=== PATIENT | female | born 1965 | race Caucasian/White ===

== ENCOUNTER 2019-09-12 19:41 | Emergency (ER) | payer MEDICARE ==
--- NOTE | 2019-09-12 20:33 | EDM.PDOC ---
ED HPI GENERAL MEDICAL PROBLEM - General Chief Complaint: Bite:Animal, Insect Stated Complaint: TICK BITE Time Seen by Provider: 09/12/19 20:35 Source of Information: Reports: Patient History Limitations: Reports: No Limitations - History of Present Illness INITIAL COMMENTS - FREE TEXT/NARRATIVE: pt has a female deer tick stuck at the base of the left side of her neck. She states it has been there since monday. She does not feel ill and does not have a fever. Onset: Gradual Location: Reports: Neck Associated Symptoms: Reports: No Other Symptoms denies pain Pain Score (Numeric/FACES): 0 - Related Data Allergies Allergy/AdvReac Type Severity Reaction Status Date / Time cefuroxime [From Ceftin] Allergy Rash Verified 09/12/19 20:20 tizanidine Allergy Tachycardia Verified 09/12/19 20:20 Home Meds: Home Meds Albuterol Sulfate [Albuterol Sulfate Hfa] 8.5 gm IH ASDIRECTED 09/12/19 [History ] Fluticasone/Vilanterol [Breo Ellipta 100-25 MCG Inhalation Kit] 1 puff IN ASDIRECTED 09/12/19 [History] Gabapentin [Neurontin] 800 mg PO DAILY 09/12/19 [History] Metoprolol Succinate [Toprol Xl] 25 mg PO DAILY 09/12/19 [History] atorvaSTATin [Lipitor] 20 mg PO DAILY 09/12/19 [History] Past Medical History Cardiovascular History: Reports: Arrhythmia, High Cholesterol Respiratory History: Reports: COPD 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: Musculoskeletal History: Reports: Fracture Other Musculoskeletal History: neck fx Psychiatric History: Reports: Anxiety - Infectious Disease History Infectious Disease History: Reports: Chicken Pox - Past Surgical History GI Surgical History: Reports: Appendectomy, Cholecystectomy Female Surgical History: Reports: Oophorectomy Social & Family History - Tobacco Use Smoking Status *Q: Current Every Day Smoker Years of Tobacco use: 40 Packs/Tins Daily: 1 - Caffeine Use Caffeine Use: Reports: Coffee - Recreational Drug Use Recreational Drug Use: No ED ROS GENERAL - Review of Systems Review Of Systems: See Below Constitutional: Reports: No Symptoms HEENT: Reports: Other ( deer tick stuck on the base of the left side of the neck ) Respiratory: Reports: No Symptoms Cardiovascular: Reports: No Symptoms Endocrine: Reports: No Symptoms GI/Abdominal: Reports: No Symptoms : Reports: No Symptoms Musculoskeletal: Reports: No Symptoms Skin: Reports: Other ( deer tick at the bvase of the neck on the left. ) Neurological: Reports: No Symptoms Psychiatric: Reports: No Symptoms ED EXAM, ANIMAL BITE - Physical Exam Exam: See Below Exam Limited By: No Limitations General Appearance: Alert Ears: Normal TMs Nose: Normal Inspection Throat/Mouth: Normal Inspection Head: Atraumatic Neck: Other (pt has a tick stuck on the left side of the neck. This is a deer tick. ) Respiratory/Chest: No Respiratory Distress Cardiovascular: Regular Rate, Rhythm Course - Vital Signs Last Recorded V/S: Last Vital Signs Temp 36.3 C 09/12/19 20:24 Pulse 99 09/12/19 20:24 Resp 16 09/12/19 20:24 BP 144/81 H 09/12/19 20:24 Pulse Ox 96 09/12/19 20:24 - Re-Assessments/Exams Free Text/Narrative Re-Assessment/Exam: 09/13/19 19:01 tick was removed with a sliver forceps Departure - Departure Time of Disposition: 20:31 Disposition: Home, Self-Care 01 Condition: Fair Clinical Impression: Dermacentor andersoni tick bite - Discharge Information Instructions: Tick Bite Information, Adult, [id number] Referrals: PCP,None [Primary Care Provider] - Forms: ED Department Discharge Care Plan Goals: mOIST WARM PACKS TO THE affected AREA; APPLY BACITRACIN; Take DOXYCYCLINE 100MG Twice a day FOR 5 DAYS. Use sun protection while on this medication. Sepsis Event Note - Evaluation Sepsis Screening Result: No Definite Risk - Focused Exam Date Exam was Performed: 09/13/19 Time Exam was Performed: 18:59
== END 2019-09-12 20:46 | disposition home or self-care (01) ==
LOC: JP.ED 19:41
DX: S10.96XA Insect bite of unspecified part of neck, initial encounter (principal); F17.210 Nicotine dependence, cigarettes, uncomplicated; Z88.1 Allergy status to other antibiotic agents; Z88.8 Allergy status to other drugs, medicaments and biological substances; Z79.899 Other long term (current) drug therapy; W57.XXXA Bitten or stung by nonvenomous insect and other nonvenomous arthropods, initial encounter
CPT/HCPCS: 99282

== ENCOUNTER 2022-03-02 21:30 | Emergency (ER) | payer MEDICARE, MEDICAID ==
[2022-03-02] MEDS: Acetaminophen/HYDROcodone 325-5 MG Tab PO ONE (22:43)
[2022-03-02] MEDS: Ibuprofen 400 MG Tab PO ONE (22:44)
== END 2022-03-02 23:35 | disposition home or self-care (01) ==
LOC: JP.ED 21:30
DX: E79.0 Hyperuricemia without signs of inflammatory arthritis and tophaceous disease (principal); E78.00 Pure hypercholesterolemia, unspecified; J44.9 Chronic obstructive pulmonary disease, unspecified; Z72.0 Tobacco use; Z88.1 Allergy status to other antibiotic agents; Z88.8 Allergy status to other drugs, medicaments and biological substances; Z79.899 Other long term (current) drug therapy
CPT/HCPCS: 36415; 73660-26-T5; 73660-T5; 84550; 85025; 85651; 86140; 99283; A9270-GY

== ENCOUNTER 2022-07-18 12:05 | Emergency (ER) | payer MEDICARE, MEDICAID ==
[2022-07-18] MEDS ORDERED: Ketorolac 30 MG/ML SDV IM ONE (14:32)
[2022-07-18] MEDS ORDERED: Colchicine 0.6 MG Tab PO ONE ×2 (15:20→16:21)
== END 2022-07-18 17:10 | disposition home or self-care (01) ==
LOC: JP.ED 12:05
DX: M10.9 Gout, unspecified (principal); I10 Essential (primary) hypertension; J44.9 Chronic obstructive pulmonary disease, unspecified; E78.00 Pure hypercholesterolemia, unspecified; Z86.16 Personal history of COVID-19; Z88.1 Allergy status to other antibiotic agents; Z72.0 Tobacco use; Z88.5 Allergy status to narcotic agent; Z79.899 Other long term (current) drug therapy
CPT/HCPCS: 73562; 96372; 99283; A9270; J1885; 89060

== ENCOUNTER 2023-08-16 08:19 | Day surgery (SDC) | payer MEDICARE, MEDICAID ==
[~2023-08-16 08:19] MED LIST: Dexamethasone 4 MG/ML SDV ONE; Glycopyrrolate 0.2 MG/ML 5 ML MDV ONE; Neostigmine Methylsulfate 10 MG/10 ML MDV ONE; Ondansetron 4 MG/2 ML SDV ONE; Propofol 200 MG/20 ML SDV ONE; Rocuronium 50 MG/5 ML Vial ONE; Succinylcholine 200 MG/10 ML MDV ONE; fentaNYL 250 MCG/5 ML SDV ONE
[2023-08-16 08:44] LABS: HEMATOCRIT 37.6 % (34.3-46.0); HEMOGLOBIN 13.1 g/dL (11.2-15.5); MEAN CORPUSCULAR HEMOGLOBIN 31.6 pg (31.6-35.5); MEAN CORPUSCULAR HGB CONC 34.8 g/dL (31.6-35.5); MEAN CORPUSCULAR VOLUME 90.6 fL (81.4-99.0); RED BLOOD CELL COUNT 4.15 M/uL (3.77-5.24); WHITE BLOOD CELL COUNT,WBC 5.8 K/uL (3.2-11.0)
[2023-08-16 09:06] LABS: A/G RATIO 0.9 (1.2-2.2); ALANINE AMINOTRANSFERASE,ALT 48 U/L (12-78); ALBUMIN 3.3 g/dL (3.4-5.0); ALKALINE PHOSPHATASE 102 U/L (46-116); ANION GAP 8.1 mmol/L (5.0-14.0); ASPARTATE AMNIOTRANSFERASE,AST 34 U/L (15-37); BILIRUBIN TOTAL 0.6 mg/dL (0.2-1.0); BLOOD UREA NITROGEN,BUN 10 mg/dL (7-18); CALCIUM 9.2 mg/dL (8.5-10.1); CARBON DIOXIDE,CO2 26 mmol/L (21-32); CHLORIDE,CL 106 mmol/L (100-108); CREATININE 0.8 mg/dL (0.6-1.0); EST CRCL DRUG DOSING (CG) 84.63 mL/min; ESTIMATED GFR 85 mL/min (>60); GLUCOSE RANDOM 96 mg/dL (74-106); POTASSIUM,K 3.8 mmol/L (3.6-5.2); PROTEIN TOTAL,TP 7.2 g/dL (6.4-8.2); SODIUM,NA 140 mmol/L (140-148)
[2023-08-16] MEDS: Lactated Ringers 1,000 ML IV SCH (09:24)
[2023-08-16] MEDS: Nozin Nasal Sanitizer NASBOTH ONE (09:27)
[2023-08-16] MEDS ORDERED: ceFAZolin 2 GM in Premix Bag 1 BAG IV ONE (09:30)
[2023-08-16] MEDS: fentaNYL 100 MCG/2 ML SDV IVPUSH ONE (10:09)
[2023-08-16] MEDS: Clindamycin in 0.9 % Sod Chlor 900 MG in Premix Bag 1 BAG IV ONE (10:50)
[2023-08-16] MEDS ORDERED: fentaNYL 250 MCG/5 ML SDV ONE (11:04)
[2023-08-16] MEDS: Bupivacaine 0.5% 30 ML SDV ONE (11:20)
[2023-08-16] MEDS: Acetaminophen/oxyCODONE 325-5 MG Tab PO PRN (13:01)
== END 2023-08-16 13:54 | disposition home or self-care (01) ==
LOC: JP.SDS 08:19
PROVIDERS: ATTEND Specialist
DX: S52.551A Other extraarticular fracture of lower end of right radius, initial encounter for closed fracture (principal); S52.611A Displaced fracture of right ulna styloid process, initial encounter for closed fracture; J44.9 Chronic obstructive pulmonary disease, unspecified; I10 Essential (primary) hypertension; F32.A Depression, unspecified; F17.200 Nicotine dependence, unspecified, uncomplicated; X58.XXXA Exposure to other specified factors, initial encounter
CPT/HCPCS: 01830; 25607; 36415; 76000; 80053; 85027; 93005; 93010; A9270; C1713; J0330; J0665; J0736; J1100; J2405; J2704; J2710; J3010; J3490; J7120

== ENCOUNTER 2023-10-21 21:07 | Emergency (ER) | payer MEDICARE, MEDICAID ==
[2023-10-21] MEDS: Sodium Chloride 0.9% 1,000 ML IV SCH (23:15)
[2023-10-21] MEDS: Pantoprazole 40 MG Vial IVPUSH ONE (23:16)
[2023-10-21 23:27] LABS: ALANINE AMINOTRANSFERASE,ALT 29 U/L (12-78); ALBUMIN 3.5 g/dL (3.4-5.0); ALKALINE PHOSPHATASE 116 U/L (46-116); ASPARTATE AMNIOTRANSFERASE,AST 20 U/L (15-37); BILIRUBIN TOTAL 0.4 mg/dL (0.2-1.0); BLOOD UREA NITROGEN,BUN 15 mg/dL (7-18); CALCIUM 9.1 mg/dL (8.5-10.1); CARBON DIOXIDE,CO2 27 mmol/L (21-32); CHLORIDE,CL 106 mmol/L (100-108); CREATININE 0.9 mg/dL (0.6-1.0); EST CRCL DRUG DOSING (CG) 75.23 mL/min; ESTIMATED GFR 74 mL/min (>60); GLUCOSE RANDOM 94 mg/dL (74-106); POTASSIUM,K 3.4 mmol/L (3.6-5.2); SODIUM,NA 142 mmol/L (140-148)
[2023-10-21 23:28] LABS: ANION GAP 12.4 mmol/L (5.0-14.0)
[2023-10-21 23:37] LABS: BASOPHILS ABSOLUTE AUTO 0.02 K/uL (0.00-0.10); BASOPHILS PERCENT AUTO 0.3 % (0.1-1.3); EOSINOPHILS ABSOLUTE AUTO 0.16 K/uL (0.00-0.40); EOSINOPHILS PERCENT AUTO 2.8 % (0.0-5.4); HEMATOCRIT 36.8 % (34.3-46.0); HEMOGLOBIN 13.1 g/dL (11.2-15.5); IMMATURE GRAN ABSOLUTE AUTO 0.01 K/uL (0.00-0.23); IMMATURE GRAN PERCENT AUTO 0.2 % (0.0-0.7); LYMPHOCYTES ABSOLUTE AUTO 2.14 K/uL (0.8-3.3); MEAN CORPUSCULAR HEMOGLOBIN 31.7 pg (31.6-35.5); MEAN CORPUSCULAR HGB CONC 35.6 g/dL (31.6-35.5); MEAN CORPUSCULAR VOLUME 89.1 fL (81.4-99.0); MONOCYTES PERCENT AUTO 6.9 % (3.3-12.6); NEUTROPHILS ABSOLUTE AUTO 3.06 K/uL (1.0-7.6); NEUTROPHILS PERCENT AUTO 52.8 % (40.0-78.1); PLATELET COUNT,PLT 263 K/uL (130-375); RED BLOOD CELL COUNT 4.13 M/uL (3.77-5.24); WHITE BLOOD CELL COUNT,WBC 5.8 K/uL (3.2-11.0)
== END 2023-10-22 00:47 | disposition home or self-care (01) ==
LOC: JP.ED 21:07
DX: K62.5 Hemorrhage of anus and rectum (principal); I10 Essential (primary) hypertension; J44.9 Chronic obstructive pulmonary disease, unspecified; E78.00 Pure hypercholesterolemia, unspecified; F17.210 Nicotine dependence, cigarettes, uncomplicated; Z88.8 Allergy status to other drugs, medicaments and biological substances; Z88.1 Allergy status to other antibiotic agents; Z79.899 Other long term (current) drug therapy; Z90.49 Acquired absence of other specified parts of digestive tract
CPT/HCPCS: 36415; 80053; 82272; 85025; 96361; 96374; 99283; 99284; J2470; J7030

== ENCOUNTER 2025-01-05 11:09 | Inpatient (IN) | payer MEDICAID, MEDICARE ==
[2025-01-05] MEDS: Ondansetron 4 MG/2 ML SDV IVPUSH ONE (11:53)
[2025-01-05 12:05] LABS: BASOPHILS PERCENT AUTO 0.1 % (0.1-1.3); EOSINOPHILS PERCENT AUTO 0.0 % (0.0-5.4); IMMATURE GRAN ABSOLUTE AUTO 0.03 K/uL (0.00-0.23); IMMATURE GRAN PERCENT AUTO 0.2 % (0.0-0.7); LYMPHOCYTES ABSOLUTE AUTO 0.53 K/uL (0.8-3.3); LYMPHOCYTES PERCENT AUTO 4.3 % (11.4-47.7); MONOCYTES ABSOLUTE AUTO 0.36 K/uL (0.20-0.90); MONOCYTES PERCENT AUTO 2.9 % (3.3-12.6); NEUTROPHILS ABSOLUTE AUTO 11.53 K/uL (1.0-7.6); NEUTROPHILS PERCENT AUTO 92.5 % (40.0-78.1); PLATELET COUNT,PLT 289 K/uL (130-375); RED BLOOD CELL COUNT 4.59 M/uL (3.77-5.24); WHITE BLOOD CELL COUNT,WBC 12.5 K/uL (3.2-11.0)
[2025-01-05 12:06] LABS: BASOPHILS ABSOLUTE AUTO 0.01 K/uL (0.00-0.10); EOSINOPHILS ABSOLUTE AUTO 0.00 K/uL (0.00-0.40)
[2025-01-05 12:14] LABS: A/G RATIO 1.1 (1.2-2.2); ALANINE AMINOTRANSFERASE,ALT 45 U/L (12-78); ASPARTATE AMNIOTRANSFERASE,AST 30 U/L (15-37); BILIRUBIN TOTAL 0.4 mg/dL (0.2-1.0); BLOOD UREA NITROGEN,BUN 11 mg/dL (7-18); CARBON DIOXIDE,CO2 29 mmol/L (21-32); CHLORIDE,CL 104 mmol/L (100-108); CREATININE 0.8 mg/dL (0.6-1.0); ESTIMATED GFR 84 mL/min (>60); GLUCOSE RANDOM 121 mg/dL (74-106); POTASSIUM,K 4.4 mmol/L (3.6-5.2); PROTEIN TOTAL,TP 7.7 g/dL (6.4-8.2); SODIUM,NA 141 mmol/L (140-148)
[2025-01-05] MEDS: diphenhydrAMINE 50 MG/ML SDV IVPUSH ONE (12:30)
[2025-01-05] MEDS: Sodium Chloride 0.9% 10 ML Syringe FLUSH ONE (12:35)
[2025-01-05] MEDS: Iopamidol 612 MG/ML 100 ML Bottle IV ONE (12:35)
[2025-01-05] MEDS ORDERED: Ondansetron 4 MG/2 ML SDV IV PRN (15:52)
[2025-01-06 05:43] LABS: BASOPHILS PERCENT AUTO 0.3 % (0.1-1.3); EOSINOPHILS ABSOLUTE AUTO 0.10 K/uL (0.00-0.40); EOSINOPHILS PERCENT AUTO 1.3 % (0.0-5.4); IMMATURE GRAN PERCENT AUTO 0.1 % (0.0-0.7); LYMPHOCYTES ABSOLUTE AUTO 1.75 K/uL (0.8-3.3); LYMPHOCYTES PERCENT AUTO 22.5 % (11.4-47.7); MONOCYTES ABSOLUTE AUTO 0.60 K/uL (0.20-0.90); MONOCYTES PERCENT AUTO 7.7 % (3.3-12.6); NEUTROPHILS ABSOLUTE AUTO 5.29 K/uL (1.0-7.6); NEUTROPHILS PERCENT AUTO 68.1 % (40.0-78.1); PLATELET COUNT,PLT 244 K/uL (130-375); RED BLOOD CELL COUNT 4.00 M/uL (3.77-5.24); WHITE BLOOD CELL COUNT,WBC 7.8 K/uL (3.2-11.0)
[2025-01-06 05:45] LABS: BASOPHILS ABSOLUTE AUTO 0.02 K/uL (0.00-0.10); IMMATURE GRAN ABSOLUTE AUTO 0.01 K/uL (0.00-0.23)
[2025-01-06 05:58] LABS: A/G RATIO 1.0 (1.2-2.2); ALANINE AMINOTRANSFERASE,ALT 39 U/L (12-78); ASPARTATE AMNIOTRANSFERASE,AST 28 U/L (15-37); BILIRUBIN TOTAL 0.5 mg/dL (0.2-1.0); BLOOD UREA NITROGEN,BUN 7 mg/dL (7-18); CARBON DIOXIDE,CO2 28 mmol/L (21-32); CHLORIDE,CL 109 mmol/L (100-108); CREATININE 0.6 mg/dL (0.6-1.0); EST CRCL DRUG DOSING (CG) 111.44 mL/min; ESTIMATED GFR 103 mL/min (>60); GLUCOSE RANDOM 87 mg/dL (74-106); POTASSIUM,K 3.8 mmol/L (3.6-5.2); PROTEIN TOTAL,TP 5.8 g/dL (6.4-8.2); SODIUM,NA 143 mmol/L (140-148)
[2025-01-07 06:23] LABS: BLOOD UREA NITROGEN,BUN 5.0 mg/dL (7-18); CARBON DIOXIDE,CO2 28.0 mmol/L (21-32); CHLORIDE,CL 107.0 mmol/L (100-108); CREATININE 0.6 mg/dL (0.6-1.0); EST CRCL DRUG DOSING (CG) 111.44 mL/min; ESTIMATED GFR 103.0 mL/min (>60); GLUCOSE RANDOM 76.0 mg/dL (74-106); POTASSIUM,K 3.6 mmol/L (3.6-5.2); SODIUM,NA 140.0 mmol/L (140-148)
== END 2025-01-07 14:19 | disposition home or self-care (01) | DRG 390 ==
LOC: JP.ED 11:09 → JP.MS 14:53
PROVIDERS: ADMIT Student in an Organized Health Care Education/Training Program; ATTEND Internal Medicine
DX: K91.30 Postprocedural intestinal obstruction, unspecified as to partial versus complete (principal); K56.609 Unspecified intestinal obstruction, unspecified as to partial versus complete obstruction; J44.9 Chronic obstructive pulmonary disease, unspecified; G47.30 Sleep apnea, unspecified; I10 Essential (primary) hypertension; G43.909 Migraine, unspecified, not intractable, without status migrainosus; F31.9 Bipolar disorder, unspecified; F41.9 Anxiety disorder, unspecified; E86.0 Dehydration; F20.9 Schizophrenia, unspecified; F17.200 Nicotine dependence, unspecified, uncomplicated; E78.00 Pure hypercholesterolemia, unspecified; Z98.890 Other specified postprocedural states; M19.90 Unspecified osteoarthritis, unspecified site; Z88.8 Allergy status to other drugs, medicaments and biological substances; Z79.899 Other long term (current) drug therapy; Z90.49 Acquired absence of other specified parts of digestive tract
CPT/HCPCS: 36415; 74177; 80053; 85025; 96361; 96374; 96375; 99283; 99285; J1200; J1790; J2405; J7030 ×2; Q9967; 80048; 99223; 99232; 99238; A9270-GY; J1171

== ENCOUNTER 2025-02-09 00:34 | Emergency (ER) | payer MEDICAID, MEDICARE ==
[2025-02-09 00:47] LABS: BASOPHILS ABSOLUTE AUTO 0.03 K/uL (0.00-0.10); BASOPHILS PERCENT AUTO 0.3 % (0.1-1.3); EOSINOPHILS ABSOLUTE AUTO 0.11 K/uL (0.00-0.40); EOSINOPHILS PERCENT AUTO 1.1 % (0.0-5.4); IMMATURE GRAN ABSOLUTE AUTO 0.02 K/uL (0.00-0.23); IMMATURE GRAN PERCENT AUTO 0.2 % (0.0-0.7); LYMPHOCYTES ABSOLUTE AUTO 2.90 K/uL (0.8-3.3); LYMPHOCYTES PERCENT AUTO 29.5 % (11.4-47.7); MONOCYTES ABSOLUTE AUTO 0.49 K/uL (0.20-0.90); MONOCYTES PERCENT AUTO 5.0 % (3.3-12.6); NEUTROPHILS ABSOLUTE AUTO 6.29 K/uL (1.0-7.6); NEUTROPHILS PERCENT AUTO 63.9 % (40.0-78.1); PLATELET COUNT,PLT 257 K/uL (130-375); RED BLOOD CELL COUNT 3.99 M/uL (3.77-5.24); WHITE BLOOD CELL COUNT,WBC 9.8 K/uL (3.2-11.0)
[2025-02-09 01:09] LABS: A/G RATIO 1.2 (1.2-2.2); ALANINE AMINOTRANSFERASE,ALT 46 U/L (12-78); ASPARTATE AMNIOTRANSFERASE,AST 35 U/L (15-37); BILIRUBIN TOTAL 0.4 mg/dL (0.2-1.0); BLOOD UREA NITROGEN,BUN 11 mg/dL (7-18); CARBON DIOXIDE,CO2 30 mmol/L (21-32); CHLORIDE,CL 103 mmol/L (100-108); CREATININE 1.0 mg/dL (0.6-1.0); EST CRCL DRUG DOSING (CG) 66.03 mL/min; ESTIMATED GFR 64 mL/min (>60); GLUCOSE RANDOM 151 mg/dL (74-106); POTASSIUM,K 3.1 mmol/L (3.6-5.2); PROTEIN TOTAL,TP 6.5 g/dL (6.4-8.2); SODIUM,NA 140 mmol/L (140-148)
[2025-02-09 01:23] LABS: APPEARANCE,URINE SLIGHTLY CLOUDY (CLEAR); GLUCOSE,URINE NEGATIVE (NEGATIVE); OCCULT BLOOD,URINE NEGATIVE (NEGATIVE)
[2025-02-09 01:25] LABS: AMPHETAMINES SCREEN, URINE NEGATIVE (NEGATIVE); METHAMPHETAMINES SCREEN, URINE NEGATIVE (NEGATIVE)
[2025-02-09 01:26] LABS: METHADONE SCREEN, URINE NEGATIVE (NEGATIVE); OXYCODONE SCREEN,URINE NEGATIVE (NEGATIVE); PROPOXYPHENE SCREEN,URINE NEGATIVE (NEGATIVE); THC SCREEN,URINE 50 NG/ML PRESUMPTIVE POSITIVE (NEGATIVE)
[2025-02-09] MEDS: Potassium Chloride 10% 20 MEQ/15 ML Soln 15 ML UD Cup ONE (01:37)
[2025-02-09] MEDS: Potassium Chloride 10% 20 MEQ/15 ML Soln 15 ML UD Cup PO ONE (01:38)
[2025-02-09] MEDS: Ketorolac 15 MG/ML SDV IVPUSH ONE (01:47)
== END 2025-02-09 01:46 ==
LOC: JP.ED 00:34
DX: R55 Syncope and collapse (principal); S01.01XA Laceration without foreign body of scalp, initial encounter; I10 Essential (primary) hypertension; M54.2 Cervicalgia; E78.00 Pure hypercholesterolemia, unspecified; E87.6 Hypokalemia; Z88.8 Allergy status to other drugs, medicaments and biological substances; Z79.899 Other long term (current) drug therapy; Z90.49 Acquired absence of other specified parts of digestive tract; W18.2XXA Fall in (into) shower or empty bathtub, initial encounter
CPT/HCPCS: 36415; 70450; 71045; 71045-26; 72125; 76377; 80053; 80305-QW; 80307; 81003; 83605; 84484; 85025; 93005; 93010; 99285; A9270-GY; J1885; J7030